=== PATIENT | male | born 1965 | race Caucasian/White ===

== ENCOUNTER 2020-03-23 10:16 | Inpatient (IN) | payer OTHER ==
--- NOTE | 2020-03-23 10:40 | BHS.RME ---
Substance Use & Tx History - Substance Use History Alcohol Substance amount: 1 pint vodka + beers Frequency of use: Daily Substance route: Oral Date of Last Use: 03/22/20 Marijuana/Hashish Substance amount: 1 blunt Frequency of use: Less than 3 times per week Substance route: Smoking Date of Last Use: 03/21/20 Nicotine Substance amount: 10 ciggs Frequency of use: Daily Substance route: Smoking Date of Last Use: 03/23/20 Physical/Psych/Mental Status - Behavior General Behavior: Increased activity (restlessness, agitation) Eye Contact: Normal - Cooperativeness Cooperativeness: Cooperative - Thinking Thought Processes: Tight, Logical, Goal Directed - Physical Health Problems Is patient presently having any pain?: No Does patient presently have any injuries (include location): No Does patient currently have a fever: No Is patient : No CIWA Nausea/Vomitin Muscle Tremors: 7-Severe,w/o Arm Extended Anxiety: 3 Agitation: 3 Paroxysmal Sweats: 5 Orientation: 1-Uncertain about Date Tacttile Disturbances: 2-Mild Itch/Numbness/Burn Auditory Disturbances: 0-None Visual Disturbances: 0-None Headache: 3-Moderate CIWA-Ar Total Score: 26
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
[2020-03-23] MEDS ORDERED: ACETAMINOPHEN 325 MG TABLET (FP) PO PRN ×2 (11:57)
[2020-03-23] MEDS ORDERED: IBUPROFEN 400 MG TABLET (FP) PO PRN (11:57)
[2020-03-23] MEDS ORDERED: METHOCARBAMOL 500 MG TABLET PO PRN (11:57)
[2020-03-23] MEDS ORDERED: MAGNESIUM HYDROX 2400MG/30ML ORAL SUSPENSION 30 ML CUP PO PRN (11:57)
[2020-03-23] MEDS ORDERED: MAG HYDROX/AL HYDROX/SIMETH 30 ML UNIT-DOSE CUP PO PRN (11:57)
[2020-03-23] MEDS ORDERED: NICOTINE POLACRILEX 2 MG GUM BUC PRN (11:57)
[2020-03-23] MEDS ORDERED: MAGNESIUM CITRATE 300 ML BOTTLE PO PRN (11:57)
[2020-03-23] MEDS ORDERED: MENTHOL/PHENOL 1 EACH UD MM PRN (11:57)
[2020-03-23] MEDS ORDERED: BISMUTH SUBSALICYLATE 524 MG/30 ML UD PO PRN (11:57)
[2020-03-23] MEDS ORDERED: chlordiazePOXIDE HCL 25 MG CAPSULE PO PRN (11:57)
[2020-03-23] MEDS ORDERED: ONDANSETRON *ODT* 4 MG TABLET SL ONE (13:30)
[2020-03-23] MEDS: chlordiazePOXIDE HCL 25 MG CAPSULE PO SCH ×3 (14:09→22:17)
[2020-03-23] MEDS: PRENATAL VITAMINS W/ FOLIC ACID TABLET (FP) PO SCH (14:15)
[2020-03-23] MEDS: hydrOXYzine PAMOATE 25 MG CAPSULE (FP) PO SCH ×3 (14:17→22:17)
[2020-03-23 16:50] LABS: HEMATOCRIT 46.3 % (35.4-49); HEMOGLOBIN 15.4 GM/dL (11.7-16.9); MCH 30.4 pg (25.7-33.7); MCHC 33.2 g/dl (32.0-35.9); MEAN CELL VOLUME 91.7 fl (80-96); MEAN PLT VOLUME 9.1 fl (7.5-11.1); PLATELET COUNT 198 K/MM3 (134-434); RBC 5.05 M/mm3 (4.00-5.60); WHITE BLOOD COUNT 5.4 K/mm3 (4.0-10.0)
[2020-03-23 17:06] LABS: ALBUMIN 3.2 g/dl (3.4-5.0); BILIRUBIN,TOTAL 1.6 mg/dL (0.2-1); BLOOD UREA NITROGEN 8.5 mg/dL (7-18); CALCIUM 8.1 mg/dL (8.5-10.1); CREATININE 0.8 mg/dL (0.55-1.3); POTASSIUM 3.3 mmol/L (3.5-5.1); TOT PROT 7.9 g/dl (6.4-8.2)
[2020-03-23] MEDS ORDERED: ALBUTEROL SO4 HFA INHALER IH PRN (20:00)
[2020-03-23] MEDS: ATORVASTATIN CA 40 MG TABLET (FP) PO SCH (22:17)
[2020-03-23] MEDS: MELATONIN 5 MG TABLETS PO SCH (22:17)
[2020-03-23] MEDS: THIAMINE HCL 100 MG TABLET (FP) PO SCH (22:17)
[2020-03-24] MEDS: chlordiazePOXIDE HCL 25 MG CAPSULE PO SCH ×4 (06:38→23:22)
[2020-03-24] MEDS: hydrOXYzine PAMOATE 25 MG CAPSULE (FP) PO SCH ×2 (06:39→10:59)
--- NOTE | 2020-03-24 10:30 | PN ---
[facility] CIWA - CIWA Score Nausea/Vomitin-No Nausea/No Vomiting Muscle Tremors: 3 Anxiety: 3 Agitation: 3 Paroxysmal Sweats: 2 Orientation: 0-Oriented Tacttile Disturbances: 0-None Auditory Disturbances: 0-None Visual Disturbances: 0-None Headache: 0-None Present CIWA-Ar Total Score: 11 S Progress Note (SOAP) Subjective: nausea sweats chills shakes interrupted sleep Objective: 03/24/20 10:21 Vital Signs Temperature 97.1 F L 03/24/20 05:43 Pulse Rate 102 H 03/24/20 05:43 Respiratory Rate 16 03/24/20 05:43 Blood Pressure 135/95 03/24/20 05:43 O2 Sat by Pulse Oximetry (%) 95 03/24/20 05:43 Laboratory Tests 03/23/20 03/23/20 03/23/20 12:35 12:35 12:35 WBC 5.4 RBC 5.05 Hgb 15.4 Hct 46.3 D MCV 91.7 MCH 30.4 MCHC 33.2 RDW 17.0 H Plt Count 198 MPV 9.1 D Sodium 140 Potassium 3.3 L Chloride 106 Carbon Dioxide 26 Anion Gap 8 BUN 8.5 Creatinine 0.8 Est GFR (CKD-EPI)AfAm 115.74 Est GFR (CKD-EPI)NonAf 99.86 Random Glucose 119 H Calcium 8.1 L Total Bilirubin 1.6 H AST 57 H ALT 35 Alkaline Phosphatase 108 Total Protein 7.9 Albumin 3.2 L Syphilis Serology Non-reactive labs noted low potassium aaox3 lying in bed no acute distress Assessment: 03/24/20 10:30 withdrawals Plan: continue detox increase fluids kdur ordered
[2020-03-24] MEDS ORDERED: ONDANSETRON *ODT* 4 MG TABLET SL PRN (10:31)
[2020-03-24] MEDS: POTASSIUM CHLORIDE TABS 20 MEQ TABLET.ER (FP) PO SCH (11:01)
[2020-03-24] MEDS: PRENATAL VITAMINS W/ FOLIC ACID TABLET (FP) PO SCH (11:01)
[2020-03-24] MEDS: TAMSULOSIN HCL 0.4 MG CAP PO SCH (11:03)
[2020-03-24] MEDS: NICOTINE 14 MG/24 HOURS TOPICAL PATCH TD SCH (11:10)
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
[2020-03-24] MEDS: ATORVASTATIN CA 40 MG TABLET (FP) PO SCH (21:42)
[2020-03-24] MEDS: MELATONIN 5 MG TABLETS PO SCH (21:42)
[2020-03-24] MEDS: THIAMINE HCL 100 MG TABLET (FP) PO SCH (21:42)
[2020-03-25] MEDS: chlordiazePOXIDE HCL 25 MG CAPSULE PO SCH ×4 (06:47→22:03)
--- NOTE | 2020-03-25 09:52 | PN ---
[facility] CIWA - CIWA Score Nausea/Vomitin-No Nausea/No Vomiting Muscle Tremors: 2 Anxiety: 2 Agitation: 2 Paroxysmal Sweats: 1-Minimal Palms Moist Orientation: 0-Oriented Tacttile Disturbances: 0-None Auditory Disturbances: 0-None Visual Disturbances: 0-None Headache: 0-None Present CIWA-Ar Total Score: 7 BHS Progress Note (SOAP) Subjective: nausea headache Objective: 03/25/20 09:52 Vital Signs Temperature 97.5 F L 03/25/20 05:22 Pulse Rate 88 03/25/20 05:22 Respiratory Rate 20 03/25/20 05:22 Blood Pressure 137/76 03/25/20 05:22 O2 Sat by Pulse Oximetry (%) 95 03/25/20 05:22 Laboratory Tests 03/23/20 03/23/20 03/23/20 12:35 12:35 12:35 WBC 5.4 RBC 5.05 Hgb 15.4 Hct 46.3 D MCV 91.7 MCH 30.4 MCHC 33.2 RDW 17.0 H Plt Count 198 MPV 9.1 D Sodium 140 Potassium 3.3 L Chloride 106 Carbon Dioxide 26 Anion Gap 8 BUN 8.5 Creatinine 0.8 Est GFR (CKD-EPI)AfAm 115.74 Est GFR (CKD-EPI)NonAf 99.86 Random Glucose 119 H Calcium 8.1 L Total Bilirubin 1.6 H AST 57 H ALT 35 Alkaline Phosphatase 108 Total Protein 7.9 Albumin 3.2 L Syphilis Serology Non-reactive COVID-19 (ALIREZA) 03/23/20 14:15 WBC RBC Hgb Hct MCV MCH MCHC RDW Plt Count MPV Sodium Potassium Chloride Carbon Dioxide Anion Gap BUN Creatinine Est GFR (CKD-EPI)AfAm Est GFR (CKD-EPI)NonAf Random Glucose Calcium Total Bilirubin AST ALT Alkaline Phosphatase Total Protein Albumin Syphilis Serology COVID-19 (ALIREZA) Not detected aaox3 lying in bed no acute distress Assessment: 03/25/20 09:52 withdrawals Plan: continue detox tylenol prn motrin prn zofran prn increase fluids
[2020-03-25] MEDS: TAMSULOSIN HCL 0.4 MG CAP PO SCH (11:11)
[2020-03-25] MEDS: POTASSIUM CHLORIDE TABS 20 MEQ TABLET.ER (FP) PO SCH (11:11)
[2020-03-25] MEDS: PRENATAL VITAMINS W/ FOLIC ACID TABLET (FP) PO SCH (11:11)
[2020-03-25] MEDS: NICOTINE 14 MG/24 HOURS TOPICAL PATCH TD SCH (11:11)
[2020-03-25] MEDS: THIAMINE HCL 100 MG TABLET (FP) PO SCH (22:03)
[2020-03-25] MEDS: ATORVASTATIN CA 40 MG TABLET (FP) PO SCH (22:03)
[2020-03-25] MEDS: MELATONIN 5 MG TABLETS PO SCH (22:05)
[2020-03-26] MEDS ORDERED: chlordiazePOXIDE HCL 10 MG CAPSULE PO PRN
[2020-03-26] MEDS: chlordiazePOXIDE HCL 10 MG CAPSULE PO SCH ×4 (06:33→22:18)
[2020-03-26] MEDS: POTASSIUM CHLORIDE TABS 20 MEQ TABLET.ER (FP) PO SCH (11:20)
[2020-03-26] MEDS: TAMSULOSIN HCL 0.4 MG CAP PO SCH (11:20)
[2020-03-26] MEDS: PRENATAL VITAMINS W/ FOLIC ACID TABLET (FP) PO SCH (11:21)
[2020-03-26] MEDS: NICOTINE 14 MG/24 HOURS TOPICAL PATCH TD SCH (11:21)
--- NOTE | 2020-03-26 12:34 | PN ---
[facility] CIWA - CIWA Score Nausea/Vomitin-No Nausea/No Vomiting Muscle Tremors: 2 Anxiety: 2 Agitation: 1-Slight > Activity Paroxysmal Sweats: 2 Orientation: 0-Oriented Tacttile Disturbances: 0-None Auditory Disturbances: 0-None Visual Disturbances: 0-None Headache: 0-None Present CIWA-Ar Total Score: 7 BHS Progress Note (SOAP) Subjective: Complaints of sweats, shakes and anxiety. Objective: 03/26/20 12:32 Vital Signs 03/26/20 03/26/20 05:14 09:00 Temperature 97.3 F L 98.0 F Pulse Rate 78 70 Respiratory 16 17 Rate Blood Pressure 121/64 110/57 L O2 Sat by Pulse 94 L 94 L Oximetry (%) Laboratory Last Values WBC 5.4 K/mm3 (4.0-10.0) 03/23/20 12:35 RBC 5.05 M/mm3 (4.00-5.60) 03/23/20 12:35 Hgb 15.4 GM/dL (11.7-16.9) 03/23/20 12:35 Hct 46.3 % (35.4-49) D 03/23/20 12:35 MCV 91.7 fl (80-96) 03/23/20 12:35 MCH 30.4 pg (25.7-33.7) 03/23/20 12:35 MCHC 33.2 g/dl (32.0-35.9) 03/23/20 12:35 RDW 17.0 % (11.9-15.9) H 03/23/20 12:35 Plt Count 198 K/MM3 (134-434) 03/23/20 12:35 MPV 9.1 fl (7.5-11.1) D 03/23/20 12:35 Sodium 140 mmol/L (136-145) 03/23/20 12:35 Potassium 3.3 mmol/L (3.5-5.1) L 03/23/20 12:35 Chloride 106 mmol/L (98-107) 03/23/20 12:35 Carbon Dioxide 26 mmol/L (21-32) 03/23/20 12:35 Anion Gap 8 MMOL/L (8-16) 03/23/20 12:35 BUN 8.5 mg/dL (7-18) 03/23/20 12:35 Creatinine 0.8 mg/dL (0.55-1.3) 03/23/20 12:35 Est GFR (CKD-EPI)AfAm 115.74 03/23/20 12:35 Est GFR (CKD-EPI)NonAf 99.86 03/23/20 12:35 Random Glucose 119 mg/dL (74-106) H 03/23/20 12:35 Calcium 8.1 mg/dL (8.5-10.1) L 03/23/20 12:35 Total Bilirubin 1.6 mg/dL (0.2-1) H 03/23/20 12:35 AST 57 U/L (15-37) H 03/23/20 12:35 ALT 35 U/L (13-61) 03/23/20 12:35 Alkaline Phosphatase 108 U/L (45-117) 03/23/20 12:35 Total Protein 7.9 g/dl (6.4-8.2) 03/23/20 12:35 Albumin 3.2 g/dl (3.4-5.0) L 03/23/20 12:35 Syphilis Serology Non-reactive (NONREACTIVE) 03/23/20 12:35 COVID-19 (ALIREZA) Not detected (Not Detected) 03/23/20 14:15 Labs noted. Assessment: 03/26/20 12:32 Alert and oriented x3, in no acute respiratory distress. Decreased ROM, ambulatory with left leg prosthesis and wheelchair.. Skin warm to touch. Withdrawal symptoms. Plan: Continue detox protocol. Safety precautions.
[2020-03-26] MEDS: MELATONIN 5 MG TABLETS PO SCH (22:18)
[2020-03-26] MEDS: ATORVASTATIN CA 40 MG TABLET (FP) PO SCH (22:18)
[2020-03-26] MEDS: THIAMINE HCL 100 MG TABLET (FP) PO SCH (22:18)
[2020-03-27] MEDS: chlordiazePOXIDE HCL 10 MG CAPSULE PO SCH ×2 (06:25→16:50)
[2020-03-27] MEDS: TAMSULOSIN HCL 0.4 MG CAP PO SCH (08:02)
[2020-03-27] MEDS: PRENATAL VITAMINS W/ FOLIC ACID TABLET (FP) PO SCH (10:05)
[2020-03-27] MEDS: NICOTINE 14 MG/24 HOURS TOPICAL PATCH TD SCH (10:05)
[2020-03-27] MEDS: POTASSIUM CHLORIDE TABS 20 MEQ TABLET.ER (FP) PO SCH (10:05)
--- NOTE | 2020-03-27 13:41 | PN ---
[facility] CIWA - CIWA Score Nausea/Vomitin-No Nausea/No Vomiting Muscle Tremors: None Anxiety: 2 Agitation: 2 Paroxysmal Sweats: No Perspiration Orientation: 0-Oriented Tacttile Disturbances: 0-None Auditory Disturbances: 0-None Visual Disturbances: 0-None Headache: 0-None Present CIWA-Ar Total Score: 4 S Progress Note (SOAP) Subjective: Interrupted sleep Objective: 03/27/20 13:36 Last Vital Signs Temp Pulse Resp BP Pulse Ox 98.0 F 86 18 130/76 94 L 03/27/20 09:08 03/27/20 09:08 03/27/20 09:08 03/27/20 09:08 03/27/20 09:08 Elevated b/p noted, denies htn, not on med Laboratory Tests 03/23/20 03/23/20 03/23/20 12:35 12:35 12:35 WBC 5.4 RBC 5.05 Hgb 15.4 Hct 46.3 D MCV 91.7 MCH 30.4 MCHC 33.2 RDW 17.0 H Plt Count 198 MPV 9.1 D Sodium 140 Potassium 3.3 L Chloride 106 Carbon Dioxide 26 Anion Gap 8 BUN 8.5 Creatinine 0.8 Est GFR (CKD-EPI)AfAm 115.74 Est GFR (CKD-EPI)NonAf 99.86 Random Glucose 119 H Calcium 8.1 L Total Bilirubin 1.6 H AST 57 H ALT 35 Alkaline Phosphatase 108 Total Protein 7.9 Albumin 3.2 L Syphilis Serology Non-reactive COVID-19 (ALIREZA) 03/23/20 14:15 WBC RBC Hgb Hct MCV MCH MCHC RDW Plt Count MPV Sodium Potassium Chloride Carbon Dioxide Anion Gap BUN Creatinine Est GFR (CKD-EPI)AfAm Est GFR (CKD-EPI)NonAf Random Glucose Calcium Total Bilirubin AST ALT Alkaline Phosphatase Total Protein Albumin Syphilis Serology COVID-19 (ALIREZA) Not detected Labs reviewed: elevated total bilirubin and AST level, K level 3.3 (low), glucose 119mg Assessment: 03/27/20 13:41 Withdrawal sxs Noted with elevated LFT, hyperglycemia, hypokalemia and hypocalcemia Plan: Continue detox Encourage PO water intake Patient scheduled for discharge home tomorrow Follow up with PCP within 1-2 weeks and for all abnormal lab results Elevated LFT: mild, most likely due to alcoholism, encourage abstinence, follow up with PCP for monitoring Hyperglycemia: most likely due to withdrawal, obtain glucose random POC x 1 Hypokalemia: replenished Hypocalcemia: start calcium carbonate 500mg PO bid
[2020-03-27] MEDS: CALCIUM CARBONATE 650 MG TABLET PO SCH ×2 (17:27→21:24)
[2020-03-27] MEDS: THIAMINE HCL 100 MG TABLET (FP) PO SCH (21:24)
[2020-03-27] MEDS: MELATONIN 5 MG TABLETS PO SCH (21:24)
[2020-03-27] MEDS: ATORVASTATIN CA 40 MG TABLET (FP) PO SCH (21:24)
[2020-03-27] MEDS: HYDROCORTISONE 1% TOPICAL CREAM 30 GM TUBE TP SCH (21:27)
[2020-03-28] MEDS ORDERED: chlordiazePOXIDE HCL 10 MG CAPSULE PO ONE (05:00)
--- NOTE | 2020-03-28 09:06 | DS ---
[facility] Detox Discharge Summary Admission Date: 03/23/20 Discharge Date: 03/28/20 - History Present History: Alcohol Dependence - Physical Exam Results Vital Signs: Vital Signs Temperature 97.3 F L 03/28/20 05:20 Pulse Rate 63 03/28/20 05:20 Respiratory Rate 16 03/28/20 05:20 Blood Pressure 123/67 03/28/20 05:20 O2 Sat by Pulse Oximetry (%) 95 03/28/20 05:20 Pertinent Admission Physical Exam Findings: Vital Signs Temperature 97.3 F L 03/28/20 05:20 Pulse Rate 63 03/28/20 05:20 Respiratory Rate 16 03/28/20 05:20 Blood Pressure 123/67 03/28/20 05:20 O2 Sat by Pulse Oximetry (%) 95 03/28/20 05:20 Laboratory Tests 03/23/20 03/23/20 03/23/20 12:35 12:35 12:35 WBC 5.4 RBC 5.05 Hgb 15.4 Hct 46.3 D MCV 91.7 MCH 30.4 MCHC 33.2 RDW 17.0 H Plt Count 198 MPV 9.1 D Sodium 140 Potassium 3.3 L Chloride 106 Carbon Dioxide 26 Anion Gap 8 BUN 8.5 Creatinine 0.8 Est GFR (CKD-EPI)AfAm 115.74 Est GFR (CKD-EPI)NonAf 99.86 Random Glucose 119 H Calcium 8.1 L Total Bilirubin 1.6 H AST 57 H ALT 35 Alkaline Phosphatase 108 Total Protein 7.9 Albumin 3.2 L Syphilis Serology Non-reactive COVID-19 (ALIREZA) 03/23/20 14:15 WBC RBC Hgb Hct MCV MCH MCHC RDW Plt Count MPV Sodium Potassium Chloride Carbon Dioxide Anion Gap BUN Creatinine Est GFR (CKD-EPI)AfAm Est GFR (CKD-EPI)NonAf Random Glucose Calcium Total Bilirubin AST ALT Alkaline Phosphatase Total Protein Albumin Syphilis Serology COVID-19 (ALIREZA) Not detected aaox3 ambulating well with his prosthetic leg and wheelchair no acute distress lungs CTA - Treatment Hospital Course: Detox Protocol Followed, Detoxed Safely, Responded well, Discharged Condition Good, Rehab Referral Accepted - Medication Discharge Medications: Ambulatory Orders Quetiapine Fumarate [Seroquel -] 100 mg PO HS #30 tab 10/26/14 Albuterol Sulfate Inhaler - [Ventolin Hfa Inhaler -] 1 - 2 inh PO Q4H PRN 03/23/20 Atorvastatin Calcium 40 mg PO HS 03/23/20 Duloxetine HCl [Cymbalta -] 30 mg PO DAILY 03/23/20 Tamsulosin HCl [Flomax] 0.4 mg PO DAILY 03/23/20 - Diagnosis (1) depression Current Visit: Yes Status: Active (2) s/p craniotomy for bleeding Current Visit: Yes Status: Active (3) s/p surgery of left elbow Current Visit: Yes Status: Active (4) Alcohol dependence with withdrawal Current Visit: Yes Status: Chronic Qualifiers: Complication of substance-induced condition: uncomplicated Qualified Code(s): F10.230 - Alcohol dependence with withdrawal, uncomplicated (5) MDD (major depressive disorder), recurrent episode, severe Current Visit: Yes Status: Acute (6) Nicotine dependence Current Visit: Yes Status: Acute Qualifiers: Nicotine product type: cigarettes Substance use status: uncomplicated Qualified Code(s): F17.210 - Nicotine dependence, cigarettes, uncomplicated (7) Asthma Current Visit: Yes Status: Chronic (8) Borderline systolic HTN Current Visit: Yes Status: Chronic (9) s/p bk amputation left knee wearing prosthesis Current Visit: Yes Status: Chronic (10) DM Diabetes mellitus type 2 Current Visit: No Status: Active (11) Anxiety and depression Current Visit: No Status: Chronic - AMA Did Patient Leave Against Medical Advice: No
[2020-03-28 09:40] VITALS: BP 130/70; PULSE 93; TEMP 98
[2020-03-28] MEDS: CALCIUM CARBONATE 650 MG TABLET PO SCH (11:14)
[2020-03-28] MEDS: HYDROCORTISONE 1% TOPICAL CREAM 30 GM TUBE TP SCH (11:15)
[2020-03-28] MEDS: TAMSULOSIN HCL 0.4 MG CAP PO SCH (11:15)
[2020-03-28] MEDS: NICOTINE 14 MG/24 HOURS TOPICAL PATCH TD SCH (11:15)
[2020-03-28] MEDS: PRENATAL VITAMINS W/ FOLIC ACID TABLET (FP) PO SCH (11:15)
== END 2020-03-28 13:52 | disposition home or self-care (01) | DRG 775 ==
LOC: YASAS 10:16 → Y6N 13:10
PROVIDERS: ADMIT Allergy & Immunology; ATTEND Allergy & Immunology
PROC: HZ2ZZZZ Detoxification Services for Substance Abuse Treatment (ICD-10-PCS; principal; 2020-03-23)
DX: F10.230 Alcohol dependence with withdrawal, uncomplicated (principal); F12.20 Cannabis dependence, uncomplicated; F17.210 Nicotine dependence, cigarettes, uncomplicated; F33.2 Major depressive disorder, recurrent severe without psychotic features; F41.9 Anxiety disorder, unspecified; F43.10 Post-traumatic stress disorder, unspecified; E83.51 Hypocalcemia; E87.6 Hypokalemia; R73.9 Hyperglycemia, unspecified; J45.909 Unspecified asthma, uncomplicated; L90.5 Scar conditions and fibrosis of skin; I73.9 Peripheral vascular disease, unspecified; G40.509 Epileptic seizures related to external causes, not intractable, without status epilepticus; L03.818 Cellulitis of other sites; Z87.820 Personal history of traumatic brain injury; R94.5 Abnormal results of liver function studies; R03.0 Elevated blood-pressure reading, without diagnosis of hypertension; Z89.512 Acquired absence of left leg below knee; Z56.0 Unemployment, unspecified; Z59.0 Homelessness; Z79.2 Long term (current) use of antibiotics
CPT/HCPCS: 36415; 80053; 85027; 86780; U0003